=== PATIENT | male | born 1965 | race Caucasian/White ===

== ENCOUNTER → 2016-09-15 | Outpatient (CLI) | payer BC, OTHER ==
[~2016-09-15] MED LIST: ANALGESIC325 MG PO; ASPIR 8181 MG PO; IBUPROFEN 800800 MG PO; PERCOCET PO; VITAMIN D1000 UNI1; WEIGHT LOSS MED; [UNRECOGNIZED DRUG - OTHER]
== END ==
LOC: ULTRA 08:53
DX: I82.403 Acute embolism and thrombosis of unspecified deep veins of lower extremity, bilateral (principal); M79.89 Other specified soft tissue disorders; M79.604 Pain in right leg; M79.605 Pain in left leg

== ENCOUNTER 2018-01-01 16:01 | Emergency (ER) | payer BC, OTHER ==
[~2018-01-01] VITALS: Ht 172.7 cm; Wt 117.9 kg
[2018-01-01 16:02] VITALS: BP 138/93
[2018-01-01] MEDS ORDERED: KEFLEX500 M1 PO (16:25)
== END 2018-01-01 16:54 | disposition home or self-care (01) ==
LOC: ER 16:01
DX: L03.211 Cellulitis of face (principal); F17.210 Nicotine dependence, cigarettes, uncomplicated

== ENCOUNTER 2020-04-01 20:43 | Inpatient (IN) | payer OTHER ==
[~2020-04-01] VITALS: Ht 170.2 cm; Wt 51.2 kg
--- NOTE | ~2020-04-01 | EMS ---
[address] [address] EMS Patient Care Report Name: JONNY LOGAN Room #: REG [facility]#: [id number] Admission: 04/01/20 Attend Phys: Discharge: Date of : 61 Report #: [id number] THIS REPORT FOR: //name// Report Transmitted: 04/01/2020 22:30 EMS Care Summary [place], [place]/[facility] Incident [id number] @ 04/01/2020 20:16 Incident Location [facility] Patient JONNY LOGAN Male, 54 Years 1965 Patient Address [address] [place] [address] Patient History Other,Hypertension (HTN),Depression,Chronic Pain, Patient Allergies No known allergies, Patient Medications Acetaminophen, Oxycodone, Pantoprazole, Duloxetine, Xarelto, Multivitamin, Gabapentin, [place], Zofran, Baclofen, Docusate Sodium, Hydrochlorothiazide (Hctz), Lisinopril, Aspirin, Vitamin D, Chief Complaint ABOMINAL PAIN/VOMITING Disposition Transported No Lights/[place] Dispatch Reason Abdominal Pain/Problems Transported To [facility] Narrative SCENE: ON ARRIVAL PT FOUND IN BED AT ADDRESS PROVIDEDL PT IS AWAKE AND ALERT WITH A GCS OF 15. PT C/O ABDOMINAL PAIN AND VOMITING. PT DENIES ALL OTHER [address] [address] EMS Patient Care Report Name: JONNY LOGAN Room #: REG [facility]#: [id number] Admission: 04/01/20 Attend Phys: Discharge: Date of : 61 Report #: [id number] COMPLAINTS. PT SLID TO EMS STRETCHER. AMBULANCE: VITALS MONITORED THROUGHOUT TRANSPORT. NO CHANGES, MIRALX AND ZOFRAN AT 2000 97 94 PULSE 142 86 95 PERCENT Initial Vitals @20:36P: 96,R: 20,BP: 145/75,GCS: 15,Revised Trauma: 12, @20:26P: 98,R: 16,Pain: 4/10,GCS: 15,Revised Trauma: 12, Assessments @20:25MENTAL:No Abnormalities,SKIN:No Abnormalities,HEENT:Head/Face: No Abnormalities,Eyes: No Abnormalities,Neck/Airway: No Abnormalities,LUNG SOUNDS:General: Vomiting,General: Other,ABDOMEN:General: Vomiting,General: Other,PELVIS//GI:No Abnormalities,EXTREMITIES:Left Arm: No Abnormalities,Right Arm: No Abnormalities,Left Leg: No Abnormalities,Right Leg: No Abnormalities,PULSE:NEURO:No Abnormalities,@20:37MENTAL:No Abnormalities,SKIN:No Abnormalities,HEENT:Head/Face: No Abnormalities,Eyes: No Abnormalities,Neck/Airway: No Abnormalities,LUNG SOUNDS:General: Other,General: Vomiting,ABDOMEN:General: Other,General: Vomiting,PELVIS//GI:No Abnormalities,EXTREMITIES:Left Arm: No Abnormalities,Right Arm: No Abnormalities,Left Leg: No Abnormalities,Right Leg: No Abnormalities,PULSE:NEURO:No Abnormalities, Impression Abdominal Pain Procedures @20:25ALS AssessmentResponse: UnchangedSucceeded@20:31StretcherResponse: Unchanged Timeline 20:14,Call Received 20:14,Dispatch Notified 20:16,Dispatched 20:17,En Route 20:23,On Scene 20:25,At Patient [facility] [address] [place] [address] EMS Patient Care Report Name: JONNY LOGAN Room #: REG [facility]#: [id number] Admission: 04/01/20 Attend Phys: Discharge: Date of : 61 Report #: [id number] 20:25,ALS Assessment,Response: UnchangedSucceeded, 20:26,BP: 148/ M,PULSE: 98,RR: 16 R,SPO2: Ox,ETCO2: ,BG: ,PAIN: 4,GCS: 15, 20:31,Stretcher,Response: Unchanged 20:36,BP: 145/75 M,PULSE: 96,RR: 20 R,SPO2: Ox,ETCO2: ,BG: ,PAIN: ,GCS: 15, 20:37,Depart Scene 20:39,At Destination 20:54,Call Closed Disclaimer v1.1 Copyright 2020 [employer] This EMS Care Summary contains data elements from the applicable legal record (which may be displayed differently). It is designed to provide pertinent information for the following purposes: continuity of care, clinical quality, and state data reporting. The complete legal record is available to ED staff and administrators of the receiving hospital in [employer] Patient Tracker. All data is provided "as is."
[~2020-04-01 20:43] MED LIST changes: +KEFLEX500 M1 PO
[2020-04-01 20:44] VITALS: BP 142/74
[2020-04-01 21:24] LABS: ABSOLUTE NEUTROPHILS 12.1 thou/uL (1.4-8.2); BASOPHILS 0.2 % (0.0-2.0); EOSINOPHILS 0.5 % (0.0-3.0); HEMATOCRIT 30.1 % (42.0-52.0); LYMPHOCYTES 5.1 % (24.0-44.0); MCH 30.9 pg (26.0-34.0); MCHC 33.3 g/dL (28.0-37.0); MCV 92.9 fL (80.0-100.0); MONOCYTES 5.2 % (1.0-8.0); PLATELET COUNT 507 thou/uL (150-400); RBC 3.24 mil/uL (4.50-6.00); RDW 14.3 % (10.5-14.5); WBC 13.6 thou/uL (4.0-11.0)
[2020-04-01 21:35] LABS: CALCIUM 9.6 mg/dL (8.5-10.1); POTASSIUM 3.7 mmol/L (3.5-5.1)
[2020-04-01 21:41] LABS: ALBUMIN 2.7 g/dL (3.4-5.0); TOTAL BILIRUBIN 0.5 mg/dL (0.2-1.0); TOTAL PROTEIN 7.5 g/dL (6.4-8.2)
[2020-04-01] MEDS ORDERED: LISINOPRIL2.5 MG PO (21:52)
[2020-04-01] MEDS ORDERED: PERCOCET 7.5-31 EAC1 PO (21:52)
[2020-04-01] MEDS ORDERED: HYDROCHLOROTHIA25 M2 PO (21:52)
[2020-04-01] MEDS ORDERED: FLEXERIL PO (21:52)
[2020-04-01] MEDS ORDERED: DULOXETINE HCL60 MG PO (21:53)
[2020-04-01] MEDS ORDERED: XARELTO20 MG PO (21:53)
[2020-04-02 02:29] VITALS: BP 124/63
[2020-04-02 03:14] VITALS: BP 128/78
--- NOTE | 2020-04-02 07:39 | NUR ---
PROGRESS PT ADMITTED TO ROOM 459 VIA ER FOR CHOLECYSTITIS RATING PAIN A 7 TO 8 TAKING MORPHINE WITH EFFECT. ORIENTED TO ROOM CALL LIGHT SYSTEM AND POC. PRESSURE WOUMD NOTED TO SACRUM MEPILEX DRESSING APPLIED PICTURE TAKEN AND PLACED IN CHART CONTINUE POC.
--- NOTE | 2020-04-02 09:32 | NUR ---
WOUND CONSULT; INITIAL ASSESSMENT TODAY. THE PATIENT HAS MEGAN RE; HIP SURGERY WEEKS AGO. ALL THE MEGAN HAVE ERYTHEMA AT THE BASE AND NEED TO BE REMOVED FROM AN INFECTION STANDPOINT. A DEEP TISSUE INJURY WAS IDENTIFIED TO THE COCCYX AREA WHICH IS INTACT AND BRUISED. THE HEELS WERE ASSESSED AN ALL AME PROMINENCES WITH NEG FINDINGS. RECOMMENDATIONS; 1-ADD A LOW AIR LOSS PUMP. 2-ZGUARD TO COCCYX. 2-UTILIZE PILLOWS AND WEDGES TO OFFLOAD THE COCCYX AREA DISCUSSED WITH RN ALL ISSUES WELL GETTING AN ORDER TO GET THE MEGAN OUT SOON POSSIBLE
--- NOTE | 2020-04-02 14:57 | NUR ---
PT ADMITTED RELATED TO CHOLECYSTITIS. CM REVIEWED CHART AND SPOKE WITH CARE TEAM. CM MET WITH PT AT BEDSIDE THIS DAY. PT IS A&O X4. CM ROLE INTRODUCED. PT INDICATED THAT HE HAD BEEN AT [facility] FOR SKILLED REHAB PRIOR TO ADMISSION. HE HAD HIP SURGERY AT [facility] AND THEN A POST OP [facility]. PT INDICATED HE HAD BEEN LIVING IN A HOUSE ALONE PRIOR TO THAT. PT INDICATED 1 STEP TO ENTER AND NONE INSIDE. PT INDICATED HE HAS A WC, SCOOTER, AND 4WW FOR HOME USE. PT INDICATED THAT HE HOPES TO BE ABLE TO DISCHARGE HOME ONCE MEDICALLY STABLE BUT THAT HE DEFINATLY DOESN'T WANT TO RETURN TO [facility]. PT IS NPO AFTER MIDNIGHT THIS DAY FOR A PIPIDA SCAN TOMORROW. CM TO FOLLOW INDICATED WITH DC PLANNING.
[2020-04-02 15:17] VITALS: BP 99/55
--- NOTE | 2020-04-02 17:46 | NUR ---
ASSUMED CARE AT 0700. PATIENT IS ALERT AND ORIENTED X4. PATIENT MARAVILLA[employer], [employer] MARKET[employer]IST AER EQUAL. LUNGS ARE CLEAR. ABD IS SOFT WITH HYPOACTIVE BS. PATIENT IS NPO, IV FLUIDS OF NS STARTED AT 75 CC/HR PER IV IN PATIENTS RIGHT AC. IV SITE WITHOUT REDNESS OR SWELLING. PATIENT CONTINUES ON IV ABT'S WITHOUT ADVERSE AFFECTS. PATIENT [place] OCT 5 [place] [facility] MEGAN ARE INTACT. THE INCISION SITE IS SLIGHTLY PINK. PATIENT HAS PRESSURE AREAS ON BOTTOM. WOUND CARE NURSE HERE. Z-GUARD ORDERED. DR. SHINE HERE TO SEE PATIENT. PIPIDA SCAN ORDERED FOR LATER TODAY. FALL AND SAFETY PROTOCOLS IN PLACE. NO PAIN MED UNTIL AFTER THE SCAN. WILL CONTINUE TO MONITER.
[2020-04-03 05:43] LABS: HEMATOCRIT 29.1 % (42.0-52.0); HEMOGLOBIN 9.5 gm/dL (14.0-18.0); MCHC 32.8 g/dL (28.0-37.0); MCV 94.7 fL (80.0-100.0); RBC 3.08 mil/uL (4.50-6.00); RDW 14.4 % (10.5-14.5); WBC 7.9 thou/uL (4.0-11.0)
[2020-04-03 06:31] LABS: ALBUMIN 2.5 g/dL (3.4-5.0); CALCIUM 9.7 mg/dL (8.5-10.1); CREATININE 0.9 mg/dL (0.7-1.3); MAGNESIUM 1.8 mg/dL (1.8-2.4); POTASSIUM 3.7 mmol/L (3.5-5.1); TOTAL BILIRUBIN 0.5 mg/dL (0.2-1.0); TOTAL PROTEIN 7.2 g/dL (6.4-8.2)
--- NOTE | 2020-04-03 08:07 | NUR ---
ASSUMED CARE OF PT AT 1900HRS. PT AOX4 AND LETS NEEDS BE KNOWN. FALL PRECAUTION IN PLACE. PT REPORTED PAIN AND PRN PAIN MEDS WERE PROVIDED. PT DENIES NAUSEA OR SOA. PT ATE A LATE DINNER. PT ASKED TO NOT EAT AFTER MN FOR POSSIBLE PROCEDURE. REPORT GIVEN TO AM RN.
--- NOTE | 2020-04-03 11:53 | NUR ---
ASSUMED CARE AT 0700 THIS MORNING. REPORT STATED THAT THE PT. POSSIBLY HAS SURGERY TODAY. NO ORDER NOTED. PT. ASKED TO REMAIN NPO BUT ATE SOME EGGS THIS MORNING. PT. ASKED TO EAT NOTHING ELSE THIS MORNING.
[2020-04-03 16:00] VITALS: BP 113/69
--- NOTE | 2020-04-03 16:16 | NUR ---
PT AND OT SAW PT AND WERE RECOMMENDING CONTINUED SKILELD REHAB VS. HOME WITH HOME HEALTH. PT IS INSISTANT ON GOING HOME. PT HAD ALL NEEDED DME. THEREAPY INDICATED THAT PT'S SISTER SHOULD PROBABLY STAY WITH HIM UPON DC HOME. SHOULD PT BE MEDICALLY STABLE TO DC OVER WEEKEND SEND REFERRAL TO [facility] P: F: .
[2020-04-03 20:15] VITALS: BP 108/68
--- NOTE | 2020-04-04 02:45 | NUR ---
PATIENT AOX4 MAKES NEEDS KNOWN. PATIENT CALM AND COOPERATIVE WITH MEDS AND CARE. PAIN CONTROLLED THIS SHIFT. PATIENT MEGAN ON RIGHT HIP ARE INTACT, NO S/S OF INFECTION. PERICARE AND Z GUARD APPLIED NEEDED. FALL PRECAUTION IN PLACE. PATIENT IN BED ASLEEP AT THIS TIME BREATHING REGULAR AND UNLABOURED.
[2020-04-04 09:38] VITALS: BP 117/69
[2020-04-04 16:28] VITALS: BP 119/63
[2020-04-04 19:58] VITALS: BP 115/69
--- NOTE | 2020-04-04 19:58 | NUR ---
Assumed pt care this am, pt refused to move and gget off the bed, refused to be reppositions and Q2 turns stating " i do small moves that relieve me, and i feel by bottom is not as sore as when i came in." Janette care done, uses the urinal and had an exrta large bm and used the bed jackson. tatiana on his right hip present. Pain is managed with medications, partial relief is noted, diet and medictions are tolerated well. Endorsed to the night nurse.
--- NOTE | 2020-04-05 07:25 | NUR ---
Assumed pt care at 1900. A/OX4,VSS. Continent of B&B,voiding per urinal at [facility]. C/o pain to right hip medicated per EMAR with relief reported. Pt refuses to be repositioned in bed,on a VALERI mattress has redness on sacrum Zguard applied. IVF infusing via RAC w/o any problems. Fall precautions in place,calls approp for help. Resting quietly in bed w/o distress noted,will continue to monitor pt.
--- NOTE | 2020-04-05 15:26 | NUR ---
ASSUMED CARE AT 0700 THIS MORNING. PT. REMAINS IN HIS BED. HE ASK FOR PAIN MEDICATIONS WHEN HE HAS PAIN. HE CONTINUES TO RECEIVE IV ABO'S. HE STATES HE HASW AN ELECTRIC CHAIR AT HOME THAT HE USED OCCASIONALLY BEFORE THE FALL. HE STATES HE WAS AMBULATORY PRIOR TO HIS FALL. HE HAS BEEN PLEASANT AND COOPERATIVE WITH CARES.
[2020-04-05 17:39] VITALS: BP 123/76
[2020-04-05 19:15] VITALS: BP 120/74
--- NOTE | 2020-04-06 02:26 | NUR ---
ASSUMED PT CARE AROUND 1930. AXOX4. VSS. NO S/S ACUTE DISTRESS NOTED OR REPORTED AT THIS TIME. WILL CONT TO MONITOR FOR ANY CHANGES IN CONDITION.
[2020-04-06 07:57] VITALS: BP 122/79
--- NOTE | 2020-04-06 10:00 | NUR ---
WOUND CARE F/U; THE COCCYX AREA IS STABLE AND INTACT. I REC'D ORDERS FROM DR YOUNG TO TAKE OUT THE RIGHT HIP MEGAN. THE MEGAN WERE REMOVED W/O ANY BLEEDING AND THE PATIENT TOLERATED IT WELL. NO S/S OF INFECTION. STERI-STRIPS WERE APPLIED TP SUPPORT THE INSCISION LINE. RECOMMENDATIONS; CONTINUE CURRENT POC
--- NOTE | 2020-04-06 15:27 | NUR ---
Assumed pt care this am, VS stable. POC followed la no signs or verbalizations of distress noted. Pain is managed with medications, refused Q2 turns an d is fully aware of the consequesnces if not done. Wound care done and pictures taken for the saccrum wound is dry and intact. Staple were removed by wound care on the right leg and hip dressing done by wound care , pic tures take. POC followed, IV removed , pt is now dc was picked up by family.
== END 2020-04-06 14:48 | disposition home or self-care (01) | DRG 871 ==
LOC: ER 20:43 → 4W 04-02 02:30 → EROBS 04-02 02:30 → 4W 04-02 03:15
PROVIDERS: Emergency Medicine; ADMIT Hospitalist; ATTEND Hospitalist
DX: A41.9 Sepsis, unspecified organism (principal); E43 Unspecified severe protein-calorie malnutrition; K80.00 Calculus of gallbladder with acute cholecystitis without obstruction; D68.51 Activated protein C resistance; F17.210 Nicotine dependence, cigarettes, uncomplicated; F10.20 Alcohol dependence, uncomplicated; E87.6 Hypokalemia; Z20.828 Contact with and (suspected) exposure to other viral communicable diseases; G71.00 Muscular dystrophy, unspecified; Z79.891 Long term (current) use of opiate analgesic; Z79.899 Other long term (current) drug therapy
CPT/HCPCS: 10040